=== PATIENT | male | born 1960 | race Caucasian/White ===

== ENCOUNTER 2019-01-03 19:14 | Emergency (ER) | payer OTHER, BC ==
[2019-01-03 21:09] LABS: ADD MAN DIFF? NO
[2019-01-03 21:11] LABS: BASOPHIL # 0.1 10^3/ul (0.0-0.1); BASOPHILS % 0.5 % (0.0-2.0); EOSINOPHILS # 0.1 10^3/ul (0.0-0.5); EOSINOPHILS % 1.1 % (0.0-7.0); HEMATOCRIT 45.9 % (42.0-52.0); LYMPHOCYTES # 1.6 10^3/ul (0.8-2.9); LYMPHOCYTES % 13.7 % (15.0-51.0); MEAN CORPUSCULAR HEMOGLOBIN 31.6 pg (29.0-33.0); MEAN CORPUSCULAR HGB CONC 34.9 g/dl (32.0-37.0); MEAN CORPUSCULAR VOLUME 90.5 fl (82.0-101.0); MEAN PLATELET VOLUME 10.2 fl (7.4-10.4); MONOCYTES % 8.4 % (0.0-11.0); NEUTROPHIL # 9.1 10^3/ul (1.6-7.5); PLATELET COUNT 230 10^3/UL (140-415); RED BLOOD COUNT 5.07 10^6/ul (4.70-6.10); RED CELL DISTRIBUTION WIDTH 11.9 % (11.5-14.5)
[2019-01-03 21:14] LABS: ADD UMIC NO; UR ASCORBIC ACID NEGATIVE (NEGATIVE); UR BILIRUBIN (Dip) NEGATIVE (NEGATIVE); UR BLOOD (Dip) NEGATIVE (NEGATIVE); UR CLARITY CLEAR (CLEAR); UR COLOR STRAW (YELLOW); UR GLUCOSE (Dip) NEGATIVE (NEGATIVE); UR KETONES (Dip) NEGATIVE (NEGATIVE); UR LEUKOCYTE ESTERASE (Dip) NEGATIVE Leu/ul (NEGATIVE); UR NITRITE (Dip) NEGATIVE (NEGATIVE); UR SPECIFIC GRAVITY (Dip) 1.013 (1.003-1.030); UR TOTAL PROTEIN (Dip) NEGATIVE (NEGATIVE); UR UROBILINOGEN (Dip) NEGATIVE (NEGATIVE)
[2019-01-03] MEDS: morphine 4 MG/ML VIAL IV (21:18)
[2019-01-03 21:33] LABS: ALBUMIN/GLOBULIN RATIO 1.53; ANION GAP 7 (5-13); CARBON DIOXIDE 28 mmol/L (21-31); CHLORIDE 101 mmol/L (97-110); Estimated GFR > 60 mL/min (>60); POTASSIUM 3.9 mmol/L (3.5-5.1); SODIUM 136 mmol/L (135-144)
[2019-01-03 21:48] LABS: ALANINE AMINOTRANSFERASE 41 IU/L (13-69); ASPARTATE AMINO TRANSFERASE 37 IU/L (15-46); BLOOD UREA NITROGEN 17 mg/dl (7-20); CALCIUM 10.2 mg/dl (8.4-10.2); CREATININE 1.24 mg/dl (0.61-1.24); GLUCOSE 117 mg/dl (70-220)
[2019-01-03 21:49] LABS: ALBUMIN 4.6 g/dl (3.3-4.9); ALKALINE PHOSPHATASE 57 IU/L (42-121); TOTAL PROTEIN 7.6 g/dl (6.1-8.1)
[2019-01-03] MEDS: IODIXANOL LOCM 100 ML BTL (22:14)
[2019-01-03] MEDS: SOD CHLORIDE 0.9% 100 ML (22:14)
[2019-01-03] MEDS: PIPER-TAZO 3.375 GM IV (PMX) 100 ML IVPB (23:54)
[2019-01-03] MEDS: morphine 10 MG INJ IV (23:54)
[2019-01-03] MEDS: metroNIDAZOLE 500 MG/NS (PMX) 100 ML IVPB (23:55)
== END 2019-01-04 01:37 | disposition home or self-care (01) ==
LOC: E/R 01-04 01:37
DX: K57.32 Diverticulitis of large intestine without perforation or abscess without bleeding (principal); R21 Rash and other nonspecific skin eruption; I10 Essential (primary) hypertension
CPT/HCPCS: 36415; 74177; 80053; 81003; 83605; 85025; 96374; 96375; 96376; 99284-25

== ENCOUNTER 2019-02-23 18:37 | Emergency (ER) | payer SELFPAY ==
[2019-02-23 20:21] LABS: ADD MAN DIFF? NO
[2019-02-23 20:23] LABS: WHITE BLOOD COUNT 9.3 10^3/ul (4.8-10.8)
[2019-02-23 20:23] LABS: BASOPHILS % 0.4 % (0.0-2.0); EOSINOPHILS # 0.2 10^3/ul (0.0-0.5); EOSINOPHILS % 1.6 % (0.0-7.0); HEMATOCRIT 46.8 % (42.0-52.0); HEMOGLOBIN 16.5 g/dl (14.0-18.0); LYMPHOCYTES # 1.5 10^3/ul (0.8-2.9); LYMPHOCYTES % 16.2 % (15.0-51.0); MEAN CORPUSCULAR HEMOGLOBIN 31.8 pg (29.0-33.0); MEAN CORPUSCULAR HGB CONC 35.3 g/dl (32.0-37.0); MEAN CORPUSCULAR VOLUME 90.2 fl (82.0-101.0); MEAN PLATELET VOLUME 10.1 fl (7.4-10.4); MONOCYTES % 10.7 % (0.0-11.0); NEUTROPHIL # 6.6 10^3/ul (1.6-7.5); NEUTROPHILS % 70.8 % (39.0-77.0); PLATELET COUNT 292 10^3/UL (140-415); RED BLOOD COUNT 5.19 10^6/ul (4.70-6.10); RED CELL DISTRIBUTION WIDTH 11.9 % (11.5-14.5)
[2019-02-23 20:28] LABS: ANION GAP 10 (5-13); BLOOD UREA NITROGEN 16 mg/dl (7-20); CALCIUM 9.8 mg/dl (8.4-10.2); CARBON DIOXIDE 31 mmol/L (21-31); CHLORIDE 99 mmol/L (97-110); CREATININE 1.21 mg/dl (0.61-1.24); Estimated GFR > 60 mL/min (>60); GLUCOSE 127 mg/dl (70-220); POTASSIUM 3.7 mmol/L (3.5-5.1); SODIUM 140 mmol/L (135-144)
[2019-02-23] MEDS: morphine 4 MG/ML VIAL IV (20:31)
[2019-02-23] MEDS: SOD CHLORIDE 0.9% 1,000 ML IV (20:31)
[2019-02-23] MEDS: metroNIDAZOLE 500 MG/NS (PMX) 100 ML IVPB (20:31)
[2019-02-23] MEDS: CIPROFLOXACIN 400MG/D5W 200 ML IVPB (21:54)
[2019-02-23] MEDS: KETOROLAC 30 MG INJ IV (22:51)
== END 2019-02-23 23:23 | disposition home or self-care (01) ==
LOC: E/R 18:37
DX: K57.92 Diverticulitis of intestine, part unspecified, without perforation or abscess without bleeding (principal); I10 Essential (primary) hypertension; Z21 Asymptomatic human immunodeficiency virus [HIV] infection status
CPT/HCPCS: 36415; 80048; 85025; 96365; 96366; 96368; 96375; 99284-25

== ENCOUNTER 2019-05-04 20:18 | Inpatient (IN) | payer OTHER ==
[2019-05-04 21:19] LABS: ADD MAN DIFF? NO
[2019-05-04 21:20] LABS: BASOPHIL # 0.1 10^3/ul (0.0-0.1); BASOPHILS % 0.4 % (0.0-2.0); EOSINOPHILS # 0.1 10^3/ul (0.0-0.5); EOSINOPHILS % 0.4 % (0.0-7.0); HEMATOCRIT 49.1 % (42.0-52.0); HEMOGLOBIN 16.5 g/dl (14.0-18.0); LYMPHOCYTES # 1.4 10^3/ul (0.8-2.9); LYMPHOCYTES % 8.4 % (15.0-51.0); MEAN CORPUSCULAR HEMOGLOBIN 31.1 pg (29.0-33.0); MEAN CORPUSCULAR HGB CONC 33.6 g/dl (32.0-37.0); MEAN CORPUSCULAR VOLUME 92.6 fl (82.0-101.0); MONOCYTE # 1.3 10^3/ul (0.3-0.9); MONOCYTES % 8.2 % (0.0-11.0); NEUTROPHIL # 13.2 10^3/ul (1.6-7.5); NEUTROPHILS % 82.2 % (39.0-77.0); PLATELET COUNT 320 10^3/UL (140-415); RED CELL DISTRIBUTION WIDTH 12.5 % (11.5-14.5)
[2019-05-04] MEDS: ONDANSETRON 4 MG INJ IV (21:26)
[2019-05-04] MEDS: BELLADONNA/PHENOBARBITAL TAB PO (21:27)
[2019-05-04] MEDS: LIDOCAINE/MYLANTA 40 ML BTL PO (21:27)
[2019-05-04] MEDS: KETOROLAC 15 MG INJ IV (21:27)
[2019-05-04] MEDS: LACTATED RINGER'S 1,000 ML IV (21:29)
[2019-05-04 21:30] LABS: ALANINE AMINOTRANSFERASE 185 IU/L (13-69); ALBUMIN 4.4 g/dl (3.3-4.9); ALBUMIN/GLOBULIN RATIO 1.18; ALKALINE PHOSPHATASE 122 IU/L (42-121); ANION GAP 8 (5-13); ASPARTATE AMINO TRANSFERASE 202 IU/L (15-46); BILIRUBIN,INDIRECT 1.2 mg/dl (0-1.1); BILIRUBIN,TOTAL 2.2 mg/dl (0.2-1.3); BLOOD UREA NITROGEN 21 mg/dl (7-20); CALCIUM 9.7 mg/dl (8.4-10.2); CARBON DIOXIDE 30 mmol/L (21-31); CHLORIDE 101 mmol/L (97-110); Estimated GFR > 60 mL/min (>60); GLUCOSE 146 mg/dl (70-220); LIPASE 114 U/L (23-300); POTASSIUM 4.2 mmol/L (3.5-5.1); SODIUM 139 mmol/L (135-144); TOTAL PROTEIN 8.1 g/dl (6.1-8.1)
[2019-05-04 21:40] LABS: TROPONIN-I < 0.012 ng/ml (0.000-0.120)
[2019-05-04] MEDS: OXYCODONE/ACETAMINOPHEN (5/325) TAB PO (21:52)
[2019-05-04 22:14] LABS: INR 0.94; PROTIME 12.7 Sec (11.9-14.9)
[2019-05-04] MEDS: CEFTRIAXONE 1 GM/50 ML (PMX) 50 ML IVPB (22:18)
[2019-05-04] MEDS: AZITHROMYCIN 500MG/NS (PMX) 250 ML IVPB (22:43)
[2019-05-04 23:40] LABS: ADD UMIC NO; UR ASCORBIC ACID NEGATIVE (NEGATIVE); UR BILIRUBIN (Dip) NEGATIVE (NEGATIVE); UR BLOOD (Dip) NEGATIVE (NEGATIVE); UR CLARITY SLIGHTLY CLOUDY (CLEAR); UR COLOR YELLOW (YELLOW); UR GLUCOSE (Dip) NEGATIVE (NEGATIVE); UR KETONES (Dip) NEGATIVE (NEGATIVE); UR LEUKOCYTE ESTERASE (Dip) NEGATIVE Leu/ul (NEGATIVE); UR NITRITE (Dip) NEGATIVE (NEGATIVE); UR RBC 1 /HPF (0-5); UR SPECIFIC GRAVITY (Dip) 1.019 (1.003-1.030); UR TOTAL PROTEIN (Dip) NEGATIVE (NEGATIVE); UR UROBILINOGEN (Dip) 1+ mg/dL (NEGATIVE); UR WBC 1 /HPF (0-5)
[2019-05-05] MEDS ORDERED: MAGNESIUM HYDROXIDE 30ML CUP PO (02:00)
[2019-05-05] MEDS ORDERED: BISACODYL (EC) 5 MG TAB PO (02:00)
[2019-05-05] MEDS ORDERED: ACETAMINOPHEN 325 MG TAB PO (02:00)
[2019-05-05] MEDS ORDERED: BISACODYL 10 MG SUPP PR (02:00)
[2019-05-05] MEDS ORDERED: DOCUSATE SODIUM 100 MG CAP PO (02:00)
[2019-05-05] MEDS: morphine 2 MG INJ IV ×6 (02:21→23:26)
[2019-05-05] MEDS: DEXTROSE 5%-0.45% NACL 1,000 ML IV ×2 (02:21→12:53)
[2019-05-05] MEDS: ONDANSETRON 4 MG INJ IV ×3 (02:30→21:29)
[2019-05-05] MEDS: FAMOTIDINE 20 MG INJ IV ×2 (10:45→21:29)
[2019-05-05] MEDS: BUPROPION 100 MG TAB PO (12:54)
[2019-05-05] MEDS: RALTEGRAVIR 400 MG TAB PO ×2 (12:54→21:28)
[2019-05-05] MEDS: PIPER-TAZO 3.375 GM IV (PMX) 100 ML IVPB ×2 (14:15→23:26)
[2019-05-05 16:07] LABS: CARCINOEMBRYONIC ANTIGEN 3.4 ng/ml (0.0-5.0)
[2019-05-05] MEDS: AZITHROMYCIN 500MG/NS (PMX) 250 ML IVPB (21:29)
[2019-05-06] MEDS: CEFTRIAXONE 1 GM/50 ML (PMX) 50 ML IVPB ×2 (00:23→23:13)
[2019-05-06] MEDS: DEXTROSE 5%-0.45% NACL 1,000 ML IV ×3 (00:23→11:20)
[2019-05-06 05:04] LABS: ADD MAN DIFF? NO
[2019-05-06 05:06] LABS: BASOPHILS % 0.3 % (0.0-2.0); EOSINOPHILS % 0.2 % (0.0-7.0); HEMATOCRIT 41.3 % (42.0-52.0); LYMPHOCYTES # 0.9 10^3/ul (0.8-2.9); MEAN CORPUSCULAR HEMOGLOBIN 31.7 pg (29.0-33.0); MEAN CORPUSCULAR HGB CONC 33.9 g/dl (32.0-37.0); MEAN CORPUSCULAR VOLUME 93.4 fl (82.0-101.0); MEAN PLATELET VOLUME 10.3 fl (7.4-10.4); MONOCYTE # 1.1 10^3/ul (0.3-0.9); MONOCYTES % 9.4 % (0.0-11.0); NEUTROPHIL # 9.5 10^3/ul (1.6-7.5); NEUTROPHILS % 81.4 % (39.0-77.0); PLATELET COUNT 248 10^3/UL (140-415); RED BLOOD COUNT 4.42 10^6/ul (4.70-6.10); RED CELL DISTRIBUTION WIDTH 12.7 % (11.5-14.5)
[2019-05-06 05:06] LABS: WHITE BLOOD COUNT 11.7 10^3/ul (4.8-10.8)
[2019-05-06 05:24] LABS: ALANINE AMINOTRANSFERASE 177 IU/L (13-69); ALBUMIN 3.4 g/dl (3.3-4.9); ALBUMIN/GLOBULIN RATIO 1.03; ALKALINE PHOSPHATASE 127 IU/L (42-121); ANION GAP 7 (5-13); ASPARTATE AMINO TRANSFERASE 88 IU/L (15-46); BILIRUBIN,INDIRECT 1.9 mg/dl (0-1.1); BILIRUBIN,TOTAL 5.5 mg/dl (0.2-1.3); BLOOD UREA NITROGEN 11 mg/dl (7-20); CALCIUM 8.6 mg/dl (8.4-10.2); CARBON DIOXIDE 28 mmol/L (21-31); CHLORIDE 98 mmol/L (97-110); CREATININE 1.19 mg/dl (0.61-1.24); Estimated GFR > 60 mL/min (>60); GLUCOSE 139 mg/dl (70-220); MAGNESIUM 2.1 mg/dl (1.7-2.5); PHOSPHORUS 2.2 mg/dl (2.5-4.9); POTASSIUM 3.9 mmol/L (3.5-5.1); SODIUM 133 mmol/L (135-144); TOTAL PROTEIN 6.7 g/dl (6.1-8.1)
[2019-05-06] MEDS: PIPER-TAZO 3.375 GM IV (PMX) 100 ML IVPB ×3 (06:50→22:00)
[2019-05-06] MEDS: BUPROPION 100 MG TAB PO (09:00)
[2019-05-06] MEDS: RALTEGRAVIR 400 MG TAB PO ×2 (09:00→21:00)
[2019-05-06] MEDS: FAMOTIDINE 20 MG INJ IV ×2 (09:01→21:00)
[2019-05-06] MEDS: morphine 2 MG INJ IV ×2 (11:17→17:05)
[2019-05-06] MEDS ORDERED: ROCURONIUM 50 MG INJ (19:07)
[2019-05-06] MEDS ORDERED: GLYCOPYRROLATE 0.4 MG INJ (19:07)
[2019-05-06] MEDS ORDERED: NEOSTIGMINE 3 MG/3 ML SYRINGE (19:07)
[2019-05-06] MEDS ORDERED: PROPOFOL 20 ML (19:07)
[2019-05-06] MEDS ORDERED: CEFAZOLIN 1 GM INJ (19:07)
[2019-05-06] MEDS ORDERED: MIDAZOLAM 1 MG/ML 2 ML INJ (19:07)
[2019-05-06] MEDS ORDERED: FENTAnyl 50 MCG/ML VIAL ×2 (19:08→20:37)
[2019-05-06] MEDS ORDERED: ONDANSETRON 4 MG INJ (19:08)
[2019-05-06] MEDS ORDERED: DEXAMETHASONE 4 MG/ML 5 ML INJ (19:08)
[2019-05-06] MEDS ORDERED: IOHEXOL 300MG/ML 30 ML BTL (19:55)
[2019-05-06] MEDS ORDERED: SUGAMMADEX SODIUM 200 MG/2 ML VIAL IV (19:59)
[2019-05-06] MEDS ORDERED: ONDANSETRON 4 MG INJ IV (20:30)
[2019-05-06] MEDS ORDERED: FENTAnyl 50 MCG/ML VIAL IV ×3 (20:30)
[2019-05-06] MEDS ORDERED: LABETALOL HCL 20MG INJ IV (20:30)
[2019-05-06] MEDS ORDERED: MEPERIDINE 25 MG INJ IV (20:30)
[2019-05-06] MEDS ORDERED: IPRATROPIUM (NEB) 0.5 MG/2.5 ML AMP HHN (20:30)
[2019-05-06] MEDS ORDERED: TRIMETHOBENZAMIDE 100 MG/ML VIAL IM (20:30)
[2019-05-06] MEDS ORDERED: HYDROmorphONE 1 MG/5 ML IV SYRINGE IV ×3 (20:30)
[2019-05-06] MEDS ORDERED: OXYCODONE/ACETAMINOPHEN (5/325) TAB PO ×2 (20:30)
[2019-05-06] MEDS ORDERED: MIDAZOLAM 1 MG/ML 2 ML INJ IV (20:30)
[2019-05-06] MEDS ORDERED: hydrALAzine 20 MG INJ IV (20:30)
[2019-05-06] MEDS ORDERED: EPHEDrine 25 MG/5 ML SYG IV (20:30)
[2019-05-06] MEDS ORDERED: DIPHENHYDRAMINE 50 MG INJ IV (20:30)
[2019-05-06] MEDS ORDERED: ALBUTEROL 0.083% (NEB) 2.5 MG/3 ML AMP HHN (20:30)
[2019-05-06] MEDS: AZITHROMYCIN 500MG/NS (PMX) 250 ML IVPB (22:00)
[2019-05-06] MEDS: INDOMETHACIN 50 MG SUPP PR (23:14)
[2019-05-07] MEDS: DEXTROSE 5%-0.45% NACL 1,000 ML IV ×3 (03:32→14:53)
[2019-05-07 05:33] LABS: ADD MAN DIFF? NO
[2019-05-07 05:45] LABS: ABNORMAL IP MESSAGE 1; BASOPHILS % 0.1 % (0.0-2.0); HEMATOCRIT 42.9 % (42.0-52.0); HEMOGLOBIN 14.6 g/dl (14.0-18.0); LYMPHOCYTES # 0.4 10^3/ul (0.8-2.9); LYMPHOCYTES % 4.4 % (15.0-51.0); MEAN CORPUSCULAR HEMOGLOBIN 31.5 pg (29.0-33.0); MEAN CORPUSCULAR VOLUME 92.7 fl (82.0-101.0); MEAN PLATELET VOLUME 10.6 fl (7.4-10.4); MONOCYTE # 0.3 10^3/ul (0.3-0.9); MONOCYTES % 3.1 % (0.0-11.0); NEUTROPHIL # 7.5 10^3/ul (1.6-7.5); PLATELET COUNT 252 10^3/UL (140-415); POSITIVE DIFF @See below; RED BLOOD COUNT 4.63 10^6/ul (4.70-6.10); RED CELL DISTRIBUTION WIDTH 12.7 % (11.5-14.5)
[2019-05-07 05:45] LABS: WHITE BLOOD COUNT 8.1 10^3/ul (4.8-10.8)
[2019-05-07 05:48] LABS: ALANINE AMINOTRANSFERASE 139 IU/L (13-69); ALBUMIN 3.3 g/dl (3.3-4.9); ALKALINE PHOSPHATASE 151 IU/L (42-121); ASPARTATE AMINO TRANSFERASE 74 IU/L (15-46); BILIRUBIN,INDIRECT 1.3 mg/dl (0-1.1); BILIRUBIN,TOTAL 3.8 mg/dl (0.2-1.3); TOTAL PROTEIN 6.8 g/dl (6.1-8.1)
[2019-05-07] MEDS: PIPER-TAZO 3.375 GM IV (PMX) 100 ML IVPB ×3 (06:39→21:37)
[2019-05-07] MEDS: BUPROPION 100 MG TAB PO (09:11)
[2019-05-07] MEDS: RALTEGRAVIR 400 MG TAB PO ×2 (09:11→21:32)
[2019-05-07] MEDS: FAMOTIDINE 20 MG INJ IV ×2 (09:11→21:31)
[2019-05-08] MEDS: PIPER-TAZO 3.375 GM IV (PMX) 100 ML IVPB ×2 (05:46→14:00)
[2019-05-08 06:02] LABS: ALANINE AMINOTRANSFERASE 115 IU/L (13-69); ALBUMIN 3.6 g/dl (3.3-4.9); ALKALINE PHOSPHATASE 166 IU/L (42-121); ASPARTATE AMINO TRANSFERASE 47 IU/L (15-46); BILIRUBIN,INDIRECT 1.1 mg/dl (0-1.1); BILIRUBIN,TOTAL 1.1 mg/dl (0.2-1.3); TOTAL PROTEIN 7.1 g/dl (6.1-8.1)
[2019-05-08] MEDS: RALTEGRAVIR 400 MG TAB PO (09:10)
[2019-05-08] MEDS: BUPROPION 100 MG TAB PO (09:10)
[2019-05-08] MEDS: FAMOTIDINE 20 MG INJ IV (09:11)
[2019-05-08] MEDS: ONDANSETRON 4 MG INJ IV (09:12)
== END 2019-05-08 14:15 | disposition home or self-care (01) | DRG 445 ==
LOC: MS1 23:45 → E/R 20:18
PROC: 0FC98ZZ Extirpation of Matter from Common Bile Duct, Via Natural or Artificial Opening Endoscopic (ICD-10-PCS; principal; 2019-05-06 16:30)
PROC: BF11YZZ Fluoroscopy of Biliary and Pancreatic Ducts using Other Contrast (ICD-10-PCS; 2019-05-06 16:30)
PROC: 0F798DZ Dilation of Common Bile Duct with Intraluminal Device, Via Natural or Artificial Opening Endoscopic (ICD-10-PCS; 2019-05-06 16:30)
DX: K80.50 Calculus of bile duct without cholangitis or cholecystitis without obstruction (principal); B20 Human immunodeficiency virus [HIV] disease; E80.6 Other disorders of bilirubin metabolism; R74.0 Nonspecific elevation of levels of transaminase and lactic acid dehydrogenase [LDH]; R11.2 Nausea with vomiting, unspecified; F32.9 Major depressive disorder, single episode, unspecified; F17.200 Nicotine dependence, unspecified, uncomplicated; Z90.49 Acquired absence of other specified parts of digestive tract
CPT/HCPCS: 36415; 71045; 74176; 74181; 74330; 76705; 80053; 80076; 81001; 81003; 82378; 83690; 83735; 84100; 84484; 85025; 85610; 85730; 86301; 87040-91; 93005; 96365; 96375; 96376; 99285-25